=== PATIENT | female | born 1950 | race Caucasian/White ===

== ENCOUNTER 2022-07-26 11:14 | Observation (INO) | payer MEDICARE ==
[~2022-07-26] VITALS: Ht 170.2 cm; Wt 110.0 kg
[2022-07-26 11:23] VITALS: BP 150/75
[2022-07-26 11:43] LABS: BASO% 0.3 % (0-3); EOS% 0.9 % (0-8); HEMOGLOBIN 13.4 g/dl (12.0-16.0); IMMATURE GRANULOCYTES 0.1 % (0.0-5.0); LYMPH% 24.9 % (15-41); MEAN CELL VOLUME 83.8 fL CALC (80.0-100.0); MEAN CORPUSCULAR HGB 26.1 pG CALC (26.0-32.0); MEAN CORPUSCULAR HGB CONC 31.2 g/dL CAL (32.0-36.0); MONO% 7.5 % (2-13); NEUT# 4.43 thou/uL (2.00-7.15); NEUT% 66.3 % (42-76); RED BLOOD COUNT 5.13 mill/uL (4.20-5.60); RED CELL DISTRI WIDTH 13.6 % (11.5-15.5)
[2022-07-26 11:57] LABS: ALBUMIN 4.2 g/dL (3.2-5.0); ALKALINE PHOSPHATASE 105 u/l (38-126); ANION GAP 12 (6-22 (CALC)); BILIRUBIN, TOTAL 0.4 mg/dL (0.02-1.3); BUN 22 mg/dL (8-23); BUN/CREATININE RATIO 23 (12-20 (CALC)); CARBON DIOXIDE 27 mmol/l (22-30); CHLORIDE 102 mmol/l (95-108); CREATININE 0.9 mg/dL (0.5-1.0); GFR FOR AFR.AMER. > 60 ML/MIN (>=60 (CALC)); GFR OTHER RACES > 60 ML/MIN (>=60 (CALC)); POTASSIUM 4.5 mmol/l (3.5-5.1); SGOT/AST 27 u/l (9-36); SODIUM 137 mmol/l (137-146); TOTAL PROTEIN 7.4 g/dL (6.3-8.2)
[2022-07-26 12:01] VITALS: BP 131/72
[2022-07-26] MEDS ORDERED: ENTYVIO300 MG IV (13:37)
[2022-07-26] MEDS ORDERED: QUESTRAN4 GM/DOSE PO (13:38)
[2022-07-26] MEDS ORDERED: LEVOTHYROXIN100 MCG PO (13:38)
[2022-07-26] MEDS ORDERED: CALCIUM600 M1 PO (13:40)
[2022-07-26] MEDS ORDERED: MULT VITAMI1 PO (13:40)
[2022-07-26] MEDS ORDERED: AMLODIPINE BESY10 MG PO (13:41)
[2022-07-26] MEDS ORDERED: NEXIUM5 MG (13:41)
[2022-07-26] MEDS ORDERED: VITAMIN B-12500 MCG PO (13:42)
[2022-07-26] MEDS ORDERED: MAGNESIUM400 MG PO (13:42)
[2022-07-26 13:48] VITALS: BP 142/84
[2022-07-26] MEDS ORDERED: [UNRECOGNIZED DRUG - OTHER] PO (15:05)
[2022-07-26 18:16] VITALS: BP 114/68
[2022-07-26 19:10] VITALS: BP 131/63
[2022-07-27 00:32] VITALS: BP 131/56
[2022-07-27 03:44] VITALS: BP 127/70
[2022-07-27 06:46] VITALS: BP 133/70
[2022-07-27 07:09] LABS: CHOLESTEROL HDL RATIO 4.9 (<4.4 (CALC)); MAGNESIUM 1.9 mg/dL (1.6-2.3)
== END 2022-07-27 12:04 | disposition home or self-care (01) ==
LOC: ED 11:14 → ED-I 12:40 → ED 12:50 → MS2 12:51
PROVIDERS: Family Medicine; ADMIT Internal Medicine; ATTEND Internal Medicine
DX: R07.9 Chest pain, unspecified (principal); I49.1 Atrial premature depolarization; I10 Essential (primary) hypertension; K21.9 Gastro-esophageal reflux disease without esophagitis; K50.90 Crohn's disease, unspecified, without complications
CPT/HCPCS: J1650